=== PATIENT | male | born 1985 | race African-American/Black ===

== ENCOUNTER 2016-09-29 21:56 | Emergency (ER) | payer OTHER ==
[~2016-09-29] VITALS: Ht 182.9 cm; Wt 62.4 kg
[2016-09-29] MEDS ORDERED: MOTRIN800 MG PO (23:07)
[2016-09-29] MEDS ORDERED: VALIUM5 MG PO (23:07)
[2016-09-29 23:13] VITALS: BP 113/59
== END 2016-09-29 23:20 | disposition home or self-care (01) ==
LOC: EME 21:56
DX: S56.911A Strain of unspecified muscles, fascia and tendons at forearm level, right arm, initial encounter (principal); S33.9XXA Sprain of unspecified parts of lumbar spine and pelvis, initial encounter; S00.93XA Contusion of unspecified part of head, initial encounter; S06.0X0A Concussion without loss of consciousness, initial encounter; V49.40XA Driver injured in collision with unspecified motor vehicles in traffic accident, initial encounter; Y92.488 Other paved roadways as the place of occurrence of the external cause
CPT/HCPCS: 72100; 99281; 99283